=== PATIENT | female | born 1990 | race Caucasian/White ===

== ENCOUNTER 2017-12-12 09:26 | Inpatient (IN) | payer OTHER, SELFPAY ==
[2017-12-12] MEDS ORDERED: NS / Oxytocin 40 units/1000ml 0 ML ONE (12:00)
[2017-12-12] MEDS ORDERED: Lidocaine 1% (PF) 30 ML VIAL ONE (12:01)
[2017-12-12] MEDS ORDERED: Carboprost 250 MCG/ML AMP IM PRN (12:56)
[2017-12-12] MEDS ORDERED: NS / Oxytocin 40 units/1000ml 1,000 ML IV PRN (12:56)
[2017-12-12] MEDS ORDERED: HYDROcodone/Acetaminophen 5/325 mg Tablet PO PRN ×2 (12:56→16:23)
[2017-12-12] MEDS ORDERED: Promethazine HCl 25 MG/ML VIAL IM PRN (12:56)
[2017-12-12] MEDS ORDERED: Ondansetron PF 4 MG/2 ML Vial IVP PRN (12:56)
[2017-12-12] MEDS ORDERED: Acetaminophen 500 MG TAB PO PRN (12:56)
[2017-12-12] MEDS ORDERED: Lidocaine 1% (PF) 30 ML VIAL SC PRN (12:56)
[2017-12-12] MEDS ORDERED: Methylergonovine 0.2 MG/ML VIAL IM PRN (12:56)
[2017-12-12] MEDS ORDERED: Ibuprofen 800 MG TAB PO PRN (12:56)
[2017-12-12] MEDS ORDERED: Meperidine HCl/PF 25 MG/ML VIAL IM/IV PRN (12:56)
[2017-12-12] MEDS ORDERED: Misoprostol 200 MCG TAB PR PRN (12:56)
[2017-12-12] MEDS ORDERED: Butorphanol Tartrate 1 MG/ML VIAL SLOW IVP PRN (12:56)
[2017-12-12 13:08] LABS: Hemoglobin 11.6 g/dL (12.0-16.0); Mean Corpuscular HGB CONC 33.1 g/dL (32.0-36.0); Mean Corpuscular Volume 84.6 fL (78.0-98.0); Mean Platelet Volume 7.7 fL (7.4-10.4); Platelet Count 291 thou/uL (130-400); RBC Distribution Width 12.4 % (11.5-14.5); Red Blood Cell (RBC) Count 4.14 mill/uL (4.20-5.40); White Blood Cell (WBC) Count 8.1 thou/uL (4.8-10.8)
--- NOTE | 2017-12-12 13:14 | PDOC.LDHP ---
Labor and Delivery H&P Chief complaint: contractions, loss of fluid HPI: C/O LOF with green/brown color at 0330 this AM. CTX started around 0500. Getting a little closer together and a little stronger. Not bad yet. Current gestational age (weeks): 40 Due date: 12/08/17 Dating criteria: last menstrual period Grav: 4 Para: 3 Current complications: none Abnormal US findings: No Current medications: pre-aimee vitamins Previous surgical history: none Allergies/Adverse Reactions: Allergies Allergy/AdvReac Type Severity Reaction Status Date / Time No Known Allergies Allergy Verified 12/12/17 09:52 - Physical Exam Vital signs reviewed and normal: yes General: NAD, resting, breathing through contractions Heart: RRR Lungs: nonlabored breathing Abdomen: NTTP Extremeties: no edema FHT: category 1, variability present [place] contractions every: 3 minutes - Vaginal Exam cm dilated: 4 Effacement: 75% Station: -2 - OB Labs Blood type: A RH: positive Antibody Screen: negative HIV: negative RPR: negative HEPSAg: negative 1 hour GCT: negative GBS: negative Urine drug screen: not done Rubella: immune - Assessment L&D Assessment: term patient in labor - Plan Plan: admit to L&D
[2017-12-12 13:42] LABS: HBSAg Index 0.19 S/CO (0-0.99); Hep B Surf Ag Non-Reactive S/CO (NonReactive); Syphilis Antibody Nonreactive (Nonreactive); Syphilis Antibody Index 0.06 S/CO (<1.00 Non-Reactive)
--- NOTE | 2017-12-12 16:06 | OP ---
DATE OF DELIVERY: 12/12/2017 PREOPERATIVE DIAGNOSIS: Term intrauterine with meconium-stained fluid. POSTOPERATIVE DIAGNOSIS: Term intrauterine with meconium-stained fluid. PROCEDURE PERFORMED: Normal spontaneous vaginal delivery. SURGEON: Janelle Martínez M.D. ANESTHESIA: None. QUANTITATIVE BLOOD LOSS: 159 mL BRIEF DELIVERY SUMMARY: This is a 27-year-old G4, now P4, who presented in active labor with spontan eous rupture of membranes at 3:30 this morning. She progressed well to complete and pushing. She de livered a live female , head OA. Mouth and nares were bulb suctioned at the perineum. There w as a nuchal cord x1 which was easily reduced prior to delivery of the shoulders. Shoulders and body easily followed and the infant was placed on mother's abdomen. Infant Apgars were 9 at 1 minute and 9 at 5 minutes. The umbilical cord was doubly clamped and cut and cord blood was sent for analysis. Placenta delivered spontaneously and intact with a 3-vessel umbilical cord. Mom and baby were left with the nurse in excellent condition attempting to breast feed.
[2017-12-12] MEDS ORDERED: Bisacodyl 10 MG SUPP PR PRN (16:23)
[2017-12-12] MEDS ORDERED: Milk Of Magnesia 30 ML UDCUP PO PRN (16:23)
[2017-12-12] MEDS ORDERED: Benzocaine/Menthol 20-0.5% 60 ML CAN TOP PRN (16:23)
[2017-12-12] MEDS ORDERED: NS / Oxytocin 40 units/1000ml 1,000 ML IV SCH (16:23)
[2017-12-12] MEDS ORDERED: Lanolin Ointment 7 GM TUBE TOP PRN (16:23)
[2017-12-12] MEDS: Ferrous Sulfate 325 MG TAB PO SCH (17:32)
[2017-12-12] MEDS: Ibuprofen 800 MG TAB PO SCH ×2 (17:32→20:32)
[2017-12-12] MEDS: Docusate Calcium (SURFAK) 240 MG CAP PO SCH (20:32)
[2017-12-13] MEDS: Ibuprofen 800 MG TAB PO SCH ×2 (04:58→14:09)
[2017-12-13] MEDS: Ferrous Sulfate 325 MG TAB PO SCH (09:08)
[2017-12-13] MEDS: Docusate Calcium (SURFAK) 240 MG CAP PO SCH (09:31)
[2017-12-13 11:25] VITALS: BP 109/70; TEMP 98.1
--- NOTE | 2017-12-13 14:11 | PDOC.PP ---
Post Progress Note Post Day #: 1 Subjective: Doing well, no c/o, lochia normal. PO intake tolerated: yes Flatus: yes Ambulation: yes Vital Signs (12 hours) Temp Pulse Resp BP Pulse Ox 12/13/17 11:24 98.1 F 69 20 109/70 12/13/17 09:30 99 12/13/17 08:23 97.6 F 61 16 115/72 99 12/13/17 04:50 98.4 F 67 18 108/62 - Physical Examination General: NAD Cardiovascular: no m/r/g, RRR Respiratory: clear to auscultation bilaterally, non-labored breathing Abdominal: + bowel sounds, lochia, no distention, appropriately TTP Result Diagrams: 12/12/17 10:25 Additional Labs: Post Labs Blood Type A POSITIVE 12/12/17 10:25 Hep Bs Antigen Non-Reactive S/CO (NonReactive) 12/12/17 10:25 (1) Vaginal delivery Code(s): O80 - ENCOUNTER FOR FULL-TERM UNCOMPLICATED DELIVERY Status: Acute - Assessment/Plan Routine PP care D/C home F/U in 6 weeks
== END 2017-12-13 16:20 | disposition home or self-care (01) | DRG 807 ==
LOC: EEVIPCON 09:26 → L&D/OP 09:26 → EEVIPCON 13:00 → L&D-LIB 13:00 → 3SW 16:21
PROVIDERS: ADMIT Family Medicine; ATTEND Family Medicine
PROC: 10E0XZZ Delivery of Products of Conception, External Approach (ICD-10-PCS; principal; 2017-12-12)
DX: O48.0 Post-term pregnancy (principal); Z37.0 Single live birth; Z3A.40 40 weeks gestation of pregnancy; O77.0 Labor and delivery complicated by meconium in amniotic fluid; O69.81X0 Labor and delivery complicated by cord around neck, without compression, not applicable or unspecified
CPT/HCPCS: 85027; 86780; 86850; 86900; 86901; 87340; 99285; J2001